=== PATIENT | male | born 1995 | race Hispanic/Latino ===

== ENCOUNTER 2020-01-05 12:00 | Outpatient (RCR) | payer OTHER | END 2020-01-07 | LOC: OT 12:00 | PROVIDERS: ATTEND Specialist | DX: S42.255A Nondisplaced fracture of greater tuberosity of left humerus, initial encounter for closed fracture (principal) | CPT/HCPCS: 97139 ==

== ENCOUNTER 2020-01-17 12:00 | Outpatient (RCR) | payer OTHER | END 2020-02-07 | LOC: OT 12:00 | PROVIDERS: ATTEND Specialist | DX: S42.255A Nondisplaced fracture of greater tuberosity of left humerus, initial encounter for closed fracture (principal) | CPT/HCPCS: 97139 ==